=== PATIENT | female | born 1940 | race Caucasian/White ===

== ENCOUNTER 2020-05-20 09:20 | Outpatient (CLI) | payer MEDICARE, SELFPAY ==
--- NOTE | ~2020-05-20 | XR_ITS ---
EXAMINATION: XR pelvis 1-2V INDICATION: Sacrococcygeal disorders TECHNIQUE: AP view of the pelvis is obtained. COMPARISON: None available FINDINGS: Bone alignment is normal. There is no fracture. There is mild osteoarthritis of the hips. S urgical changes are noted in the pelvis. There is lower lumbar spondylosis. IMPRESSION: 1. No acute osseous abnormality. Reviewed, dictated and finalized at location A. [facility] [employer]
== END 2020-05-20 09:21 | disposition home or self-care (01) ==
LOC: ANHIMG 09:29
PROVIDERS: PCP Family Medicine; Visit Provider Family Medicine
DX: M53.3 Sacrococcygeal disorders, not elsewhere classified (principal)
CPT/HCPCS: 72170

== ENCOUNTER 2022-05-30 13:30 | Emergency (ER) | payer MEDICARE, SELFPAY ==
--- NOTE | 2022-05-30 13:34 | ED.EAR ---
HPI - Ear Problem General Chief complaint: Ear Stated complaint: headache, pain in lt ear/head Time Seen by Provider: 05/30/22 14:00 Source: patient and RN notes reviewed Mode of arrival: ambulatory Limitations: no limitations History of Present Illness HPI Narrative: 81-year-old female with concern for left ear pain, frontal headache. Reports more than 1 week history of sinus congestion, drainage. She reports history of migraine. She reports she took antihistamine last week which improved her symptoms but they came back and seemed worse now. She denies any vision changes. MD Complaint: ear pain Related Data Home Medications Medication Instructions Recorded Confirmed escitalopram oxalate 20 mg tablet 20 mg PO DAILY 05/30/22 05/30/22 Allergies Allergy/AdvReac Type Severity Reaction Status Date / Time No Known Allergies Allergy Unverified 05/30/22 13:38 Review of Systems Review of Systems: CONSTITUTIONAL: Denies malaise, chills, sweats, or fever. EYES: Denies visual changes, redness, or discharge. ENT: Reports rhinorrhea, congestion, sinus pain. Reports left ear pain CARDIOVASCULAR: Denies chest pain, palpitations, or edema. RESPIRATORY: Denies cough. Denies dyspnea. GASTROINTESTINAL: Denies abdominal pain, nausea, vomiting, diarrhea SKIN: Denies rash or itching. MUSCULOSKELETAL: Denies myalgia. NEUROLOGIC: Reports headache. All systems reviewed & are unremarkable except as noted in HPI and below PMFSH Family History Family History (Updated 07/08/16 @ 23:56 by DOCTOR UNKNOWN) Grandparent Carcinoma of colon, Onset Age: 194 Father Patient's father is Social History Social History Smoking status: Never smoker Second hand tobacco smoke exposure: No Alcohol intake: current Comments At time of signature, agree with nursing past medical, surgical, social and family history. There is no relevant family history pertinent to the presenting complaint Exam Narrative: GENERAL: Well-appearing, well-nourished, and in no acute distress. HEAD: Normocephalic EYES: PERRLA, conjunctivae clear ENT: Nares clear, turbinates edematous, yellow discharge. Frontal sinus tenderness. mucous membranes moist. TM pearly bai with dull light reflex bilaterally; no tragal tenderness. Oropharynx not erythematous without lesions. Tonsils not enlarged and without exudate, no drooling, no hoarseness, no trismus, uvula midline. NECK: Supple. No lymphadenopathy CHEST: Clear to auscultation, breath sounds equal. No wheezing, rhonchi, rales, or stridor. No respiratory distress, speaks in full sentences. HEART: Regular rate and rhythm. No murmur heard. SKIN: Warm, dry, no rash. NEURO: Alert and oriented x3. PSYCH: Normal mood and affect Course Course Emergency Course: Patient is aware of diagnosis, understands and agrees to treatment plan. Anticipatory guidance given. Patient agrees to follow-up as directed and is aware of reasons to seek care at the emergency department. Portions of this record may have been created with voice recognition software Level of Care: Express Care Visit Vital Signs Vital signs: Reviewed. Medical Decision Making MDM Narrative Medical decision making narrative: Differential diagnosis considered: Bob virus, strep pharyngitis, allergic rhinitis, upper respiratory tract infection, sinusitis, rhinosinusitis, nasopharyngitis. viral pharyngitis, otitis media, otitis externa, otitis effusion, cerumen impaction, foreign body. Exam findings show no acute concerns or changes; patient is non-toxic appearing and is in no distress. Patient is appropriate for outpatient treatment and follow-up. Critical Care Time Critical Care Time Critical Care Time: No Discharge Plan Discharge Clinical Impression: Acute bacterial sinusitis Patient Disposition: Home, Self-Care Condition: Stable Instructions: Antibiotic Form, Sinusitis (ED) Additional Instructions:
[2022-05-30 13:35] VITALS: BP 140/75; PULSE 61; RESP 16; TEMP 36.3; O2SAT 100
[2022-05-30 13:39] VITALS: BP 140/75; PULSE 61; RESP 16; TEMP 36.3; O2SAT 100
== END 2022-05-30 14:10 | disposition home or self-care (01) ==
PROVIDERS: Emergency Provider Nurse Practitioner; PCP Family Medicine
DX: J01.90 Acute sinusitis, unspecified (principal); B96.89 Other specified bacterial agents as the cause of diseases classified elsewhere
CPT/HCPCS: 99213; G0463

== ENCOUNTER 2022-11-13 16:39 | Inpatient (IN) | payer MEDICARE, SELFPAY ==
[2022-11-13] VITALS (15 sets, daily range): BP systolic 107–148; BP diastolic 54–98; PULSE 57–76; RESP 12–24; TEMP 36.6–36.9; O2SAT 97–100; BMI 26.5
--- NOTE | ~2022-11-13 | XR_ITS ---
EXAMINATION: XR chest 1V portable DATE: 11/13/2022 17:14 INDICATION: ST elevation myocardial infarction. TECHNIQUE: A single frontal view of the chest was obtained. COMPARISON: CT abdomen 07/10/2014 FINDINGS: Calcified right lung nodules and calcified right hilar lymph nodes are consistent with old granulomatous disease. No pleural effusion or pneumothorax. The heart size is normal. IMPRESSION: 1. No acute cardiopulmonary disease. Reviewed, dictated and finalized at location E.
--- NOTE | 2022-11-13 16:40 | ECG_ITS ---
Measurements Intervals [place] Rate: 61 P: 55 [place]: 192 QRS: 77 QRSD: 114 T: 89 QT: 405 QTc: 410 Interpretive Statements SINUS RHYTHM BASELINE ARTIFACT MODERATE INTRAVENTRICULAR CONDUCTION DELAY MARKED ST ELEVATION, CONSIDER INFERIOR INJURY [MARKED ST ELEVATION W/O NORMALLY INFLECTED T WAVE IN II/aVF] ACUTE FL ABNORMAL ECG INTERPRETATION BASED ON A DEFAULT AGE OF 40 YEARS NO PREVIOUS ECG AVAILABLE FOR COMPARISON Electronically Signed On 11-14-2022 15:31:25 CDT by Augie Riojas M.D.
--- NOTE | 2022-11-13 16:58 | ED.CHESTPAIN ---
HPI - Chest Pain General Chief Complaint: Chest Pain Stated Complaint: chest pain Time Seen by Provider: 11/13/22 16:43 History of Present Illness HPI narrative: This is an 82-year-old female, who denies significant past medical history who presents to the emergency department complaining of chest pain. The patient describes the pain as dull and somewhat burning, located across the anterior chest without radiation or any known aggravating or alleviating factors. She states she tried multiple antacid medications at home without any improvement. She has no other complaints at this time. Related Data Home Medications Medication Instructions Recorded Confirmed escitalopram oxalate 20 mg tablet 10 mg PO Q12H 05/30/22 11/13/22 Allergies Allergy/AdvReac Type Severity Reaction Status Date / Time No Known Allergies Allergy Verified 11/13/22 17:22 Review of Systems Review of Systems: CONSTITUTIONAL: Denies fever, chills, or sweats. CARDIOVASCULAR: Chest pain denies palpitations, or edema. RESPIRATORY: Denies cough or dyspnea. GASTROINTESTINAL: Denies abdominal pain, nausea, vomiting, or diarrhea. GENITOURINARY: Denies dysuria or hematuria. SKIN: Denies rash or itching. MUSCULOSKELETAL: Denies back pain, joint pain, or myalgia. NEUROLOGIC: Denies headache, numbness, dizziness, or weakness. PSYCHIATRIC: Denies anxiety or depression. 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), and cerebral infarction without residual deficits Pure hypercholesterolemia, unspecified Family History Family History Grandparent Carcinoma of colon, Onset Age: 194 Father Patient's father is Social History Social History Smoking status: Never smoker Second hand tobacco smoke exposure: No Alcohol intake: never Substance use: never Substance use type: does not use Lack of Transportation: No Lack of Food: Never True Current Housing: I Have Housing Concerned About Future Housing: No Difficulty Paying Gas/Electric Bills: No Difficulty Paying for Meds: No Currently Unemployed: No Education: High School Diploma/GED Difficulty w/ Childcare or Family Care: No Living arrangements: with family Occupation/Education: retired Gender identity (if verbalized by the patient): Female Sexual Orientation (if Verbalized by the Patient): Straight or Heterosexual Spiritual care concerns: No Exam Narrative: GENERAL: Well-developed, well-nourished, and in no acute distress. HEAD: Normocephalic, atraumatic. EYES: PERRLA and EOMI. ENT: Nares clear, no rhinorrhea or epistaxis. Mucous membranes moist. Oropharynx without tonsillar hypertrophy exudate or other lesions. NECK: Supple. No adenopathy or masses. No JVD CHEST: Clear to auscultation. No respiratory distress. No wheezes rales or rhonchi HEART: Regular rate and rhythm. No murmur heard. Normal peripheral pulses. ABDOMEN: Soft, nontender, nondistended, normal active bowel sounds. EXTREMITIES: Normal range of motion. No edema. SKIN: Warm, dry, no rash. NEURO: Alert and oriented x3. Moving all 4 limbs purposefully. PSYCH: Normal mood and affect. Course Course Emergency Course: 17:00 - EKG consistent with Inferior STEMI. I discussed this with evaporator, Dr. Grigsby who confirms. Soiled Linen Distributor activated. ABCs intact. Blood pre
[2022-11-13 16:59] LABS: Basophils Absolute Auto 0.1 K/mm3 (0.0-0.1); Basophils Percent Auto 0.6 % (0.2-1.2); Eosinophils Absolute Auto 0.1 K/mm3 (0-0.3); Eosinophils Percent Auto 1.1 % (0-4.4); Hematocrit 35.1 % (37.0-47.0); Hemoglobin 11.4 g/dL (12.0-15.0); Immature Granulocyte Absolute 0.03 K/mm3 (0.00-0.031); Immature Granulocyte Percent A 0.4 % (0-0.5); Lymphocytes Percent Auto 23.2 % (18.3-44.2); Mean Corpuscular HGB Conc 32.5 g/dl (32-36); Mean Corpuscular Hemoglobin 29.6 pg (26-34); Mean Corpuscular Volume 91.2 fl (80-100); Mean Platelet Volume 9.5 fl (7.4-10.4); Monocytes Absolute Auto 0.6 K/mm3 (0.1-0.6); Monocytes Percent Auto 7.7 % (2.6-8.5); Neutrophils Absolute Auto 5.5 K/mm3 (1.3-6.7); Platelet Count Result 234 k/mm3 (150-375); Red Blood Count 3.85 M/mm3 (4.2-5.4); Red Cell Distribution Width 13.2 % (11.5-14.5); White Blood Count 8.2 K/mm3 (4.5-10.0)
[2022-11-13] MEDS: ASPIRIN 81 MG CHEWABLE TABLET 324 MG PO (17:00)
[2022-11-13] MEDS: TICAGRELOR 90 MG TABLET 180 MG PO (17:00)
[2022-11-13] MEDS: HEPARIN SODIUM 5,000 UNITS/ML VIAL 3500 UNITS IV PUSH (17:03)
[2022-11-13 17:10] LABS: Partial Thromboplastin Time 27.4 SECONDS (22.3-36.8); Prothrombin Time 13.2 Seconds (11.1-14.7)
[2022-11-13] MEDS: HEPARIN SOD/D5W 100 UNITS/ML 25,000 UNITS/250 ML BAG 7 UNITS IV CONT (17:10)
[2022-11-13 17:14] LABS: Alanine Aminotransferase 44 U/L (6-35); Alkaline Phosphatase 88 U/L (38-126); Anion Gap 6 mmol/L (8-16); Aspartate Amino Transferase 62 U/L (14-36); Bilirubin,Total 0.4 mg/dL (0.2-1.3); Blood Urea Nitrogen 26 mg/dL (7-17); Carbon Dioxide 23 mmol/L (22-30); Chloride 101 mmol/L (98-107); Estimated CRCL calculation 27 ml/min; Estimated Glomerular Filt Rate 43; Glucose 156 mg/dL (65-110); Lipase 73 U/L (23-300); Potassium 4.1 mmol/L (3.4-5.0); Sodium 130 mmol/L (137-145)
--- NOTE | 2022-11-13 17:21 | PC.NURSE ---
1648 O/H Stemi 1649 [facility] Cath Team 1650 Dr Grigsby notified 1657 [facility] notified arrived at 1716
--- NOTE | 2022-11-13 17:31 | PC.NURSE ---
veterinary laboratory technician arrived and departed with pt at [id number]
[2022-11-13 17:32] LABS: Troponin I 0.731 ng/mL (0.000-0.034)
--- NOTE | 2022-11-13 17:36 | PM.IMHP ---
H&P: HPI History of Present Illness Date/Time: 11/13/22 17:36 Chief Complaint: Chest pain Narrative: Patient is an 82 year old female who presented with chest pain. EKG from the ED shows acute inferior STEMI. Therefore, dental laboratory assistant activated. Patient tells me that she has been having chest pain on and off for the past few months, but had worsening chest pain starting this morning around 10AM. 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), and cerebral infarction without residual deficits Pure hypercholesterolemia, unspecified Family History Family History Grandparent Carcinoma of colon, Onset Age: 194 Father Patient's father is Social History Social History Smoking status: Never smoker Second hand tobacco smoke exposure: No Alcohol intake: current Substance use: never Substance use type: does not use Lack of Transportation: No Lack of Food: Never True Current Housing: I Have Housing Concerned About Future Housing: No Difficulty Paying Gas/Electric Bills: No Difficulty Paying for Meds: No Currently Unemployed: YES Education: High School Diploma/GED Difficulty w/ Childcare or Family Care: No Living arrangements: with family Occupation/Education: retired Gender identity (if verbalized by the patient): Female Sexual Orientation (if Verbalized by the Patient): Straight or Heterosexual Spiritual care concerns: No Meds Home Medications and Allergies Home Medications Medication Instructions Recorded Confirmed Type escitalopram oxalate 20 mg tablet 20 mg PO DAILY 05/30/22 08/08/22 History blueberry 1 tablet PO .every other day 08/08/22 History Allergies Allergy/AdvReac Type Severity Reaction Status Date / Time No Known Allergies Allergy Verified 11/13/22 17:22 Vital Signs Vital Signs - 24 hr 11/13/22 16:45 11/13/22 17:07 11/13/22 17:21 Temperature 36.8 C Pulse Rate 66 66 Respiratory Rate 15 22 H Blood Pressure 148/83 H 144/82 H Pulse Oximetry 100 100 100 Oxygen Delivery Room Air Nasal Cannula Oxygen Flow Rate 2 Exam Const: General: no acute distress HENMT: Mouth: Yes moist mucous membranes Eyes: General: appearance normal, both eyes and all related structures Sclera: sclerae normal Neck: Neck: supple Resp: Effort & Inspection: normal respiratory effort Auscultation: clear to auscultation bilaterally Cardio: Rate: regular rate and bradycardic Heart sounds: no murmurs Skin: General skin exam: normal color Neuro: Speech: normal speech Psych: Mental Status: mental status grossly normal Affect: normal affect H&P: Results Labs Labs: Short CBC 11/13/22 Range/Units 16:52 WBC 8.2 (4.5-10.0) K/mm3 Hgb 11.4 L (12.0-15.0) g/dL Hct 35.1 L (37.0-47.0) % Plt Count 234 (150-375) k/mm3 BMP 11/13/22 16:52 Sodium 130 L Potassium 4.1 Chloride 101 Carbon Dioxide 23 BUN 26 H Creatinine 1.20 H Glucose 156 H Calcium 9.0 Cardiac Enzymes 11/13/22 Range/Units 16:52 Troponin I 0.731 H* (0.000-0.034) ng/mL Liver Function 11/13/22 Range/Units 16:52 Total Bilirubin 0.4 (0.2-1.3) mg/dL AST 62 H (14-36) U/L ALT 44 H (6-35) U/L Alkaline Phosphat
--- NOTE | 2022-11-13 18:40 | WPDMODSED ---
Moderate Sedation Note-Pt Data Patient Data Diagnosis: Inferior STEMI Present Complaint: Inferior STEMI Procedure to be performed/Plan: Primary PCI Allergies Allergy/AdvReac Type Severity Reaction Status Date / Time No Known Allergies Allergy Verified 11/13/22 17:22 Home Medications Medication Instructions Recorded Confirmed Type escitalopram oxalate 20 mg tablet 20 mg PO DAILY 05/30/22 08/08/22 History blueberry 1 tablet PO .every other day 08/08/22 History Current Medications: Active Medications Heparin Sodium (Porcine) (Heparin Sodium 5,000 Units/Ml Vial) 2,000 units IV PUSH PRN PRN PRN Reason: aPTT 55 - 70 seconds Heparin Sodium (Porcine) (Heparin Sodium 5,000 Units/Ml Vial) 4,000 units IV PUSH PRN PRN PRN Reason: aPTT less than 55 seconds Heparin Sodium/Dextrose (Heparin Sodium/D5w 100 Units/Ml) 25,000 units in 250 mls @ 7 mls/hr IV CONT .Q24H NIGEL; Protocol Last Admin: 11/13/22 17:10 Dose: 700 units/hr, 7 mls/hr Sedation/Anesthesia: No previous sedation/anesthesia problems (including family history). 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), and cerebral infarction without residual deficits Pure hypercholesterolemia, unspecified Family History Family History Grandparent Carcinoma of colon, Onset Age: 194 Father Patient's father is Social History Social History Smoking status: Never smoker Second hand tobacco smoke exposure: No Alcohol intake: current Substance use: never Substance use type: does not use Lack of Transportation: No Lack of Food: Never True Current Housing: I Have Housing Concerned About Future Housing: No Difficulty Paying Gas/Electric Bills: No Difficulty Paying for Meds: No Currently Unemployed: YES Education: High School Diploma/GED Difficulty w/ Childcare or Family Care: No Living arrangements: with family Occupation/Education: retired Gender identity (if verbalized by the patient): Female Sexual Orientation (if Verbalized by the Patient): Straight or Heterosexual Spiritual care concerns: No Mod Sed Physical Exam Physical Exam Pre Procedural Exam: Normal: Appearance, Lungs, Heart Rate, Heart Rhythm, Neuro Exam, Abdomen, Extremities and Skin Hours since solid foods: 0 Hours since liquid intake: 0 Mallampati Classification: class II Internal Medicine - PN: Obj Da Vital Signs Vital Signs: Vital Signs - 24 hr 11/13/22 16:45 11/13/22 17:07 11/13/22 17:21 Temperature 36.8 C Pulse Rate 66 66 Respiratory Rate 15 22 H Blood Pressure 148/83 H 144/82 H Pulse Oximetry 100 100 100 Oxygen Delivery Room Air Nasal Cannula Oxygen Flow Rate 2 11/13/22 17:12 11/13/22 17:15 Temperature Pulse Rate 76 65 Respiratory Rate 21 H 21 H Blood Pressure Pulse Oximetry 100 100 Oxygen Delivery Oxygen Flow Rate Meds/Results Medications: Active Medications Generic Name Dose Route Start Last Admin Trade Name Freq PRN Reason Stop Dose Admin Heparin Sodium (Porcine) 2,000 units 11/13/22 17:01 Heparin Sodium 5,000 Units/Ml Vial IV PUSH PRN PRN aPTT 55 - 70 seconds Heparin Sodium (Porcine) 4,000 units 11/13/22 17:01 Heparin Sodium 5,000 Units/Ml Vial IV PUSH PRN PRN aPTT less than 55 seconds Heparin Sodium/Dextrose 25,000 units in 250 mls @ 7 mls/hr
--- NOTE | 2022-11-13 18:49 | WPDCARDPROC ---
Cardiac Cath Procedure Note Date of procedure:: 11/13/22 Performing physician:: CATHETERIZATION LABORATORY REPORT Procedure Date: 11/13/2022 Command Post Superintendent: Nadya Grigsby M.D., [facility]? Referring Physician: Dr. Agustin ([facility]) ? Anesthesia: Versed and Fentanyl were ordered and given in my presence at 17:43, procedure ended at 18:33. Supervision of nurse monitored moderate sedation with Versed and Fentanyl was provided for 50 minutes. Total of Versed 1mg and Fentanyl 50mcg were administered by the Powder Line Repairer RN Tanya Chang. Pre-op Diagnosis: Inferior STEMI Post-op Diagnosis: 1. Acute occlusion of the mid RCA s/p successful IVUS-guided PCI with NILA x 1. 2. Mildly elevated left ventricular end-diastolic pressure of 21mmHg Procedure(s): 1. Moderate sedation 2. Ultrasound-guided access of the right common femoral artery 3. Coronary angiography 4. Left heart cath 5. IVUS-guided PCI of the mid RCA with NILA x 1, with pre- and post-dilatation 6. Angioseal closure of the right common femoral artery Access Site: Right common femoral artery Brief History and Clinical Indications: Patient is an 82 year old female who is referred for emergent cardiac cath for inferior STEMI. All risks, benefits and alternatives to left heart catheterization with or without percutaneous coronary intervention was discussed at length with the patient. Risk of complications including but not limited to bleeding, infection, arrhythmia, stroke, worsening kidney function, blood loss, groin hematoma, limb loss, emergency coronary artery bypass grafting, and even were discussed with the patient and all questions were answered. The patient understood and wished to proceed. Time out called, patient name, date of , medical record number, allergies, procedure performed, identify Command Post Superintendent, patient and staff member concurred with accurate data, procedure carried on. Findings: LEFT HEART CATHETERIZATION FINDINGS: 1. Left main: Large caliber vessel. The left main coronary artery is widely patent without any significant obstructive disease. 2. Left anterior descending: Large caliber vessel that tapers to small caliber distally. The proximal LAD has mild diffuse disease. The mid and distal portions have luminal irregularities. There is corkscrew tortuosity in the distal LAD. Diagonal branches are without obstructive disease. 3. Left circumflex: The left circumflex artery and the main marginal branches have mild luminal irregularities without any significant obstructive angiographic disease. 4. Right coronary artery: Large caliber vessel. The RCA is the dominant vessel. The proximal portion has mild diffuse disease. In the mid portion of the RCA, there is a 99% stenosis followed by complete occlusion. There are [id number] collaterals filling the distal RPDA. 5. Left ventricle: A. End-diastolic pressure 21mmHg. B. LV gram deferred. C. No significant gradient across aortic valve on catheter pullback. Description of Procedure and PCI: Informed consent signed and placed in the chart. Patient transferred to quality assurance qa lab analyst room. Prepped and draped in usual sterile fashion. 2% lidocaine in right groin area. Micropuncture needle used to access right common femoral artery under ultrasound guidance J wire advanced, micropuncture cannula placed. Right iliofemoral angiogram performed, access confirmed and micropuncture cannula exchanged for 6-FR sheath. 5F FL 4 diagnostic catheter engaged Left Main Coronary Artery. Multiple orthogonal angiogram obtained and reviewed Angiomax used for anticoagulation. 6F FR 4 guide catheter was used to intubate the RCA. 0.014 [place] coronary wire was passed in to the distal RCA. The lesion was pre-dilated with a 2.5mm x 15mm balloon inflated to high ALVARO. Multiple balloon inflations done. After balloon inflation, a non-flow limiting dissection was noted at the area of the lesion. Attempted to
[2022-11-13] MEDS: EPTIFIBATIDE 0.75 MG/ML 75 MG/100 ML VIAL 9.89 MG IV CONT (18:50)
--- NOTE | 2022-11-13 18:54 | ADMGEN ---
This patient, Dania Kuhn, was admitted to Intensive Care Unit-1 at 1854. Patient/family oriented to hospital policies and general routines including ID bracelet, bed and alarms, visiting hours, pain management, procedures, bathroom and other care routines, personal items, smoking policy, room service/diet, and visiting hours. Information on how to activate the Rapid Response Team has been discussed. Patient/Family are encouraged to report perceived risks to care and to ask questions if they do not understand what they are told or what they should do.
--- NOTE | 2022-11-13 19:00 | ECG_ITS ---
Measurements Intervals [place] Rate: 53 P: 83 [place]: 201 QRS: 42 QRSD: 97 T: 66 QT: 446 QTc: 420 Interpretive Statements SINUS BRADYCARDIA INFERIOR MYOCARDIAL INFARCTION [40+ ms Q WAVE AND/OR ST/T ABNORMALITY IN II/aVF], POSSIBLY ACUTE ACUTE TX ABNORMAL ECG COMPARED TO ECG 11/13/2022 16:45:21 NO SIGNIFICANT CHANGES Electronically Signed On 11-14-2022 15:34:14 CDT by Augie Riojas M.D.
[2022-11-13] MEDS: SODIUM CHLORIDE 0.9% IV 1,000 ML 125 ML IV CONT (19:22)
[2022-11-13 20:08] LABS: Hemoglobin A1C 5.5 % (<5.7)
[2022-11-13 20:24] LABS: Cholesterol 274 mg/dL (0-200); HDL Direct 60 mg/dL; Triglycerides 84 mg/dL (<150)
[2022-11-13 20:35] LABS: LDL Cholesterol Direct 162 mg/dL
--- NOTE | 2022-11-13 23:28 | WPDCN ---
Assessment and Plan Assessment and plan (1) Acute ST elevation myocardial infarction (STEMI) of inferior wall: Code(s): I21.19 - ST elevation (STEMI) myocardial infarction involving other coronary artery of inferior wall Status: Acute Assessment and Plan: Patient presented with anterior chest pain, found to have acute inferior wall STEMI. She is now status post cardiac catheterization with successful PCI with a drug-eluting stent to the mid RCA per Dr. Grigsby. She has been started on aspirin, ticagrelor, atorvastatin. (2) Chronic kidney disease, stage 3a: Code(s): N18.31 - Chronic kidney disease, stage 3a Status: Acute Assessment and Plan: Creatinine today is 1.20 with a GFR of 43. Probably near baseline. Monitor. (3) Hypertension: Code(s): I10 - Essential (primary) hypertension Status: Acute Assessment and Plan: Not currently on antihypertensives. Blood pressures were reviewed and they have been stable. Monitor. (4) Pure hypercholesterolemia, unspecified: Code(s): E78.00 - Pure hypercholesterolemia, unspecified Status: Acute Assessment and Plan: She has been started on high-intensity statin, atorvastatin at 80 mg daily. (5) Alzheimer disease: Code(s): G30.9 - Alzheimer's disease, unspecified; F02.80 - Dementia in other diseases classified elsewhere, unspecified severity, without behavioral disturbance, psychotic disturbance, mood disturbance, and anxiety Status: Acute Assessment and Plan: She is more confused postcath, likely due to medications. Encouraged a quiet environment and good sleep-wake cycle. Plan Thank you for allowing us to participate in this patient's care. Please do not hesitate to contact us with any questions. HPI Data of Consult Date/Time: 11/13/22 22:45 Requesting Physician: Nadya Grigsby MD Primary Care Provider: Antonino Gant MD Consult Narrative Reason for consult: STEMI, medical management. Narrative: This is a very pleasant 82-year-old female whom the hospitalist service has been consulted for medical management post cardiac catheterization and percutaneous coronary intervention of the right coronary artery. The last 2 weeks she has been experiencing what she thought was heartburn and last Monday her symptoms seem to be worse. She took a [id number] antacid which helped her symptoms and she has not complained of any issues until today when she developed a dull and somewhat burning sensation across the anterior chest. The pain did not radiate and she denied associated symptoms. Specifically she denied sweats, shortness of breath, nausea, and vomiting. Once again she tried to take an antacid but that did not help and she came to the ER where she was found to have an acute inferior STEMI. She was taken to the analyst microbiology lab per Dr. Grigsby and underwent successful stent placement to the mid RCA. I am seeing the patient in the ICU and she is resting comfortably and has no complaints. She seems to be confused from the medications that she received earlier and in fact she did not remember that she was in the hospital. She was able to give me the above history once she was reminded about where she was and what had transpired. She is not having any current chest pain and she has no current complaints. Regarding her medical history, she is quite healthy for her age. She carries a diagnosis of dementia, hypertension, hypercholesterolemia, and chronic kidney disease as well as anxiety. She has has a history of breast and colon cancers which have been treated and are considered cured. The only prescription medication that she is on currently is escitalopram for her anxiety. Review of Systems Review of Systems: Twelve systems were reviewed and are negative except for as per HPI. [facility] Past Medical History Medical History (Updated 11/13/22 @ 23:34 by Jaclyn Workman PA-C) Alzheimer disease
[2022-11-13 23:44] LABS: Troponin I > 80.000 ng/mL (0.000-0.034)
[2022-11-13] MEDS: ACETAMINOPHEN 325 MG TABLET 650 MG PO (23:50)
[2022-11-13] MEDS: MELATONIN 5 MG TABLET PO (23:50)
[2022-11-14] VITALS (14 sets, daily range): BP systolic 100–129; BP diastolic 50–95; PULSE 56–76; RESP 12–30; TEMP 36.3–37.1; O2SAT 92–100
--- NOTE | 2022-11-14 | ECHO_ITS ---
Patient Info Name: Dania Kuhn Age: 82 years : 1940 Gender: Female Ht: 62 in Wt: 134 lbs BSA: 1.64 m2 HR: 65 bpm BP: 120 / 63 mmHg Heart Rhythm: Sinus Rhythm Technical Quality: Fair Exam Date: 11/14/2022 8:02 AM Exam Location: [facility] Patient Status: Inpatient Admit Date: 11/13/2022 Staff Ordering Physician: Nadya Grigsby MD (kyra/denise) Radar Operator: Beena Mendosa RDCS Attending Provider: Nadya Grigsby MD (kyra/denise) Referring Physician: Seb GARCÍA; Exam Type: CA echo doppler color flow Study Info Indications - STEMI Complete two-dimensional, color flow and Doppler transthoracic echocardiogram is performed. Summary 1. Complete two-dimensional, color flow and Doppler transthoracic echocardiogram is performed. 2. Left ventricular chamber dimension is normal. 3. Left ventricular systolic function is mildly reduced, estimated at 50% and hypokinesis of the mid inferolateral and mid and basal inferior nielson.. 4. There is no increased left ventricular wall thickness. 5. The left ventricular diastolic function is normal. 6. There is mild mitral valve regurgitation. 7. There is mild tricuspid valve regurgitation. 8. Moderate pulmonary hypertension, estimated pulmonary arterial systolic pressure is 46 mmHg. Left Ventricle Left ventricular chamber dimension is normal. Left ventricular systolic function is mildly reduced, estimated at 50% and hypokinesis of the mid inferolateral and mid and basal inferior nielson.. There is no increased left ventricular wall thickness. The left ventricular diastolic function is normal. Right Ventricle Right ventricular chamber dimension is normal. Right ventricular systolic function is normal. Left Atria Left atrial chamber dimension is normal. Right Atria Right atrial chamber dimension is normal. Atrial Septum Cannot exclude patent foramen ovale by color-flow Doppler. Consider bubble study if clinically indicated. Aortic Valve The aortic valve is trileaflet. There is mild aortic valve sclerosis. There is no aortic valve regurgitation. There is no hemodynamically significant aortic stenosis. Pulmonic Valve The pulmonic valve is not well visualized. Mitral Valve The mitral valve has thickened leaflets. There is mild mitral valve regurgitation. The mitral valve annulus is moderately calcified. Tricuspid Valve The tricuspid valve leaflets are normal. There is mild tricuspid valve regurgitation. Moderate pulmonary hypertension, estimated pulmonary arterial systolic pressure is 46 mmHg. Pericardium/Pleural The pericardium appears normal. There is no pericardial effusion. Inferior Vena Cava Normal inferior vena cava with <50% collapse upon inspiration consistent with elevated right atrial pressure, 10 mmHg. Aorta The aortic root size at the sinus of Valsalva is normal. There is mild aortic atherosclerosis. Left Ventricular Outflow Tract Name Value Normal LVOT 2D LVOT Diameter 2.0 cm LVOT Doppler LVOT Peak Gradient 2 mmHg LVOT Mean Gradient 1 mmHg LVOT VTI 13 cm LVOT VTI/AV VTI Ratio 0.5
[2022-11-14] MEDS: EPTIFIBATIDE 0.75 MG/ML 75 MG/100 ML VIAL 9.89 MG IV CONT (01:20)
[2022-11-14 04:36] LABS: Basophils Percent Auto 0.5 % (0.2-1.2); Eosinophils Percent Auto 0.1 % (0-4.4); Hematocrit 29.8 % (37.0-47.0); Hemoglobin 9.6 g/dL (12.0-15.0); Immature Granulocyte Absolute 0.04 K/mm3 (0.00-0.031); Immature Granulocyte Percent A 0.5 % (0-0.5); Lymphocytes Absolute Auto 1.42 K/mm3 (0.9-3.2); Lymphocytes Percent Auto 16.4 % (18.3-44.2); Mean Corpuscular HGB Conc 32.2 g/dl (32-36); Mean Corpuscular Hemoglobin 29.5 pg (26-34); Mean Corpuscular Volume 91.7 fl (80-100); Mean Platelet Volume 9.8 fl (7.4-10.4); Monocytes Percent Auto 11.2 % (2.6-8.5); Neutrophils Absolute Auto 6.2 K/mm3 (1.3-6.7); Neutrophils Percent Auto 71.3 % (45.5-73.1); Platelet Count Result 208 k/mm3 (150-375); Red Blood Count 3.25 M/mm3 (4.2-5.4); Red Cell Distribution Width 13.2 % (11.5-14.5); White Blood Count 8.7 K/mm3 (4.5-10.0)
--- NOTE | 2022-11-14 04:39 | PC.NURSE ---
Patient removed peripheral IV x 2. Unable to redirect patient to stop pulling at lines. Integrilin drip discontinued 2 hours early due to loss of IV access and extreme confusion. Will continue to monitor.
[2022-11-14 04:55] LABS: Alanine Aminotransferase 82 U/L (6-35); Albumin Level 3.3 g/dL (3.5-5.1); Alkaline Phosphatase 75 U/L (38-126); Anion Gap 0 mmol/L (8-16); Aspartate Amino Transferase 269 U/L (14-36); Bilirubin,Total 0.5 mg/dL (0.2-1.3); Blood Urea Nitrogen 22 mg/dL (7-17); Calcium 8.3 mg/dL (8.4-10.2); Carbon Dioxide 26 mmol/L (22-30); Chloride 102 mmol/L (98-107); Estimated CRCL calculation 35 ml/min; Estimated Glomerular Filt Rate 53; Glucose 120 mg/dL (65-110); Potassium 4.5 mmol/L (3.4-5.0); Sodium 128 mmol/L (137-145)
[2022-11-14] MEDS: ASPIRIN 81 MG ENTERIC TABLET PO (08:01)
[2022-11-14] MEDS: ATORVASTATIN 40 MG TABLET 80 MG PO (08:01)
[2022-11-14] MEDS: TICAGRELOR 90 MG TABLET PO ×2 (08:04→21:08)
--- NOTE | 2022-11-14 08:20 | WPDCNINT ---
Assessment and Plan Assessment and plan (1) Acute ST elevation myocardial infarction (STEMI) of inferior wall: Code(s): I21.19 - ST elevation (STEMI) myocardial infarction involving other coronary artery of inferior wall Status: Acute Assessment and Plan: 11/13: Patient presented with chest pain, EKG showed ST elevation in inferior leads, patient was taken to the cardiac photographic laboratory technician for acute inferior myocardial injury, found to have 99% occlusion of mid RCA status post PTCA/PCI of mid RCA with stent x1 -noted to have distal embolization to the distal RPDA, patient was placed on Integrilin infusion. -status post Integra infusion -echocardiogram has been ordered -continue aspirin, atorvastatin, ticagrelor (2) Chronic kidney disease, stage 3a: Code(s): N18.31 - Chronic kidney disease, stage 3a Status: Acute Assessment and Plan: Creatinine 1.0 this morning, currently at baseline -continue monitor urine output, renal function electrolytes (3) Hypertension: Code(s): I10 - Essential (primary) hypertension Status: Acute Assessment and Plan: Blood pressure remains stable, patient does not take any antihypertensives at this time (4) Hyperlipidemia: Code(s): E78.5 - Hyperlipidemia, unspecified Status: Acute Assessment and Plan: Continue statin (5) Alzheimer disease: Code(s): G30.9 - Alzheimer's disease, unspecified; F02.80 - Dementia in other diseases classified elsewhere, unspecified severity, without behavioral disturbance, psychotic disturbance, mood disturbance, and anxiety Status: Acute Assessment and Plan: Patient will confused likely related to change in environment -maintain normal sleep cycle, will have bright lights, open the blinds in the room -will monitor Plan DVT prophylaxis: Patient was integral infusion Stress ulcer prophylaxis: Not indicated Nutrition: Heart healthy diet Code Status: Full code Critical Care Time Spent: 47 minutes Discussed with patient and her daughter at bedside and updated the patient's condition and plan of care. I explained to both of them regarding the procedure with she has a stent in his right coronary artery since it was occluded. I answered all questions Due to a high probability of clinically significant, life threatening deterioration, the patient required my highest level of preparedness to intervene emergently and I personally spent this critical care time directly and personally managing the patient. This critical care time included obtaining a history; examining the patient; pulse oximetry; ordering and review of studies; arranging urgent treatment with development of a management plan; evaluation of patient's response to treatment; frequent reassessment; and discussions with other providers. It was exclusive of separately billable procedures and treating other patients and teaching time. Please see Assessment and Plan section and the rest of the note for further information on patient assessment and treatment This dictation may have been done utilizing a voice recognition system. Attempts have been made to correct errors. However, there may be uncorrected grammatical, spelling, and recognitions errors present. Pump Machine Operator Consult Note Consult date: 11/14/22 Reason for consult: STEMI status post PTCA/PCI to mid RCA HPI: Dania Kuhn is a 82 year old female with past medical history other murmurs disease, chronic kidney disease stage 3, migraines, anxiety disorder, hyperlipidemia, essential hypertension presented the ED with complaints of heartburn for approximately 2 weeks, which initially resolved with antacids. She started to complain of chest pain on the day of admission which was dull and somewhat burning sensation across the anterior aspect of her entire chest pain patient denies any radiation, shortness of breath, nausea or vomiting. She took antacid but this time it did not help worse she pres
--- NOTE | 2022-11-14 09:55 | PM.PNCARD ---
Progress Note: A&P Assessment and Plan (1) Acute ST elevation myocardial infarction (STEMI) of inferior wall: Code(s): I21.19 - ST elevation (STEMI) myocardial infarction involving other coronary artery of inferior wall <HARVINDER Virgen - Last Filed: 11/14/22 12:41> Status: Acute <HARVINDER Virgen - Last Filed: 11/14/22 12:41> Assessment and Plan: Presented 11/13/22 with chest pain. ECG consistent with inferior NV. Now s/p PCI to the RCA DAPT with ASA, Brilinta for one year (ASA indefinitely) High intensity statin Will add BB at some point, SBP 100mmHg currently, so will hold off for now. Cardiac rehab referral Aggressive risk factor modification for CAD Ambulate, OOB to chair Can downgrade to IMU status <HARVINDER Virgen - Last Filed: 11/14/22 12:41> (2) Hyperlipidemia: Code(s): E78.5 - Hyperlipidemia, unspecified <HARVINDER Virgen - Last Filed: 11/14/22 12:41> Status: Acute <HARVINDER Virgen - Last Filed: 11/14/22 12:41> Assessment and Plan: On high intensity statin <HARVINDER Virgen - Last Filed: 11/14/22 12:41> (3) Hypertension: Code(s): I10 - Essential (primary) hypertension <HARVINDER Virgen - Last Filed: 11/14/22 12:41> Status: Acute <HARVINDER Virgen - Last Filed: 11/14/22 12:41> Assessment and Plan: At goal <HARVINDER Virgen - Last Filed: 11/14/22 12:41> Assessment and Plan: Attending addendum: I agree with the above documentation plan of care as outlined. Patient remains at elevated risk for adverse cardiovascular complications in the near future particular the next 30 days given her presentation. Continue to monitor for ventricular arrhythmias on telemetry and medication tolerance. Aggressive risk factor modification. Close follow-up as an outpatient upon discharge. <Augie Riojas MD - Last Filed: 11/14/22 15:41> Subjective Date/time seen: 11/14/22 09:55 <HARVINDER Virgen - Last Filed: 11/14/22 12:41> Interval history: Cardiology follow up for CAD, STEMI No acute evnets overnight. Feeling well this morning. Only complaint is poor sleep last night. She denies any chest pain, shortness of breath, or palpitations. <HARVINDER Virgen - Last Filed: 11/14/22 12:41> Review of Systems Review of Systems: All systems reviewed & are unremarkable except as noted in HPI and below (HPI) <HARVINDER Virgen - Last Filed: 11/14/22 12:41> Exam Const: General: no acute distress <HARVINDER Virgen - Last Filed: 11/14/22 12:41> HENMT: Mouth: Yes moist mucous membranes <HARVINDER Virgen - Last Filed: 11/14/22 12:41> Eyes: General: appearance normal, both eyes and all related structures <HARVINDER Virgen - Last Filed: 11/14/22 12:41> Sclera: sclerae normal <HARVINDER Virgen - Last Filed: 11/14/22 12:41> Neck: Neck: supple <HARVINDER Virgen - Last Filed: 11/14/22 12:41> Resp: Effort & Inspection: normal respiratory effort <HARVINDER Virgen - Last Filed: 11/14/22 12:41> Auscultation: clear to auscultation bilaterally <HARVINDER Virgen - Last Filed: 11/14/22 12:41> Cardio: Rate: regular rate <HARVINDER Virgen - Last Filed: 11/14/22 12:41> Rhythm: regular rhythm <HARVINDER Virgen - Last Filed: 11/14/22 12:41> Heart sounds: no murmurs <HARVINDER Virgen - Last Filed: 11/14/22 12:41> Skin: General skin exam: normal color <HARVINDER Virgen - Last Filed: 11/14/22 12:41> Other: R groin arterial access site free from bleeding, hematoma, pain. <HARVINDER Virgen - Last Filed: 11/14/22 12:41> Neuro: Speech: normal speech <HARVINDER Virgen - Last Filed: 11/14/22 12:41> Extrem: Other: No edema. <HARVINDER Virgen - Last Filed: 11/14/22 12:41> Psych: Mental Status: mental status grossly normal <HARVINDER Virgen - Last Filed: 11/14/22 12:41> Aff
--- NOTE | 2022-11-14 12:38 | PC.NURSE ---
This patient, Dania Kuhn, was transferred to [[id number]] on 11/14/22 at 1238. Personal belongings sent with patient. Report given to [Roxy Katz RN]. Appropriate documentation sent with patient.
[2022-11-14] MEDS: ACETAMINOPHEN 325 MG TABLET 650 MG PO (21:08)
[2022-11-14] MEDS: MELATONIN 5 MG TABLET PO (21:08)
[2022-11-14] MEDS: QUEtiapine FUMARATE 12.5 MG TABLET PO (21:08)
[2022-11-15] VITALS (8 sets, daily range): BP systolic 101–115; BP diastolic 53–76; PULSE 61–107; RESP 16–20; TEMP 36.1–36.7; O2SAT 97–100
[2022-11-15 04:58] LABS: Alanine Aminotransferase 175 U/L (6-35); Albumin Level 3.7 g/dL (3.5-5.1); Alkaline Phosphatase 93 U/L (38-126); Anion Gap 2 mmol/L (8-16); Aspartate Amino Transferase 227 U/L (14-36); Bilirubin,Total 0.7 mg/dL (0.2-1.3); Blood Urea Nitrogen 21 mg/dL (7-17); Calcium 8.8 mg/dL (8.4-10.2); Carbon Dioxide 26 mmol/L (22-30); Chloride 104 mmol/L (98-107); Estimated CRCL calculation 30 ml/min; Estimated Glomerular Filt Rate 43; Glucose 98 mg/dL (65-110); Sodium 132 mmol/L (137-145)
[2022-11-15 05:06] LABS: Potassium 4.4 mmol/L (3.4-5.0)
--- NOTE | 2022-11-15 08:38 | PM.IMPN ---
Progress Note: A&P Assessment and Plan (1) Acute ST elevation myocardial infarction (STEMI) of inferior wall: Code(s): I21.19 - ST elevation (STEMI) myocardial infarction involving other coronary artery of inferior wall Status: Acute Assessment and Plan: Management per Cardiology (2) Chronic kidney disease, stage 3a: Code(s): N18.31 - Chronic kidney disease, stage 3a Status: Acute Assessment and Plan: Slight bump in creatinine from 1-1.2, monitor (3) Hyperlipidemia: Code(s): E78.5 - Hyperlipidemia, unspecified Status: Acute Assessment and Plan: Continue high-intensity statin (4) Hypertension: Code(s): I10 - Essential (primary) hypertension Status: Acute Assessment and Plan: Blood pressures reviewed 11/15, well controlled (5) Alzheimer disease: Code(s): G30.9 - Alzheimer's disease, unspecified; F02.80 - Dementia in other diseases classified elsewhere, unspecified severity, without behavioral disturbance, psychotic disturbance, mood disturbance, and anxiety Status: Acute Assessment and Plan: Some sundowning noted 11/14, seroquel x 1 given Plan DVT prophylaxis with SCDs GI prophylaxis not indicated Code status full code Subjective Date/time seen: 11/15/22 08:38 Interval history: 82-year-old female admitted by Cardiology for chest pain, NSTEMI and s/p PCI to RCA 11/13. No overnight events noted. No chest pain or shortness of breath. No nausea, vomiting or diarrhea. No fevers or chills. Review of Systems Review of Systems: 12 point review of systems was assessed and was negative except as noted in the HPI Exam Narrative: General: No acute distress, alert and oriented per baseline HEENT: Atraumatic, normocephalic, mucous membranes moist CV: Regular rate and rhythm, S1, S2 Lungs: Clear to auscultation bilaterally, no rales or crackles noted, no wheezes, good air entry Abdomen: Soft, nontender, nondistended Extremities: Normal to inspection Skin: No rashes noted, no lesions or wounds seen Psych: Euthymic, normal affect Objective Data Vital Signs Vital Signs: Vital Signs - 24 hr 11/14/22 10:00 11/14/22 10:00 11/14/22 12:00 Temperature 98.1 F Pulse Rate 73 74 64 Pulse Rate [Bilateral Pedal (Dorsalis Pedis) Palpation] Respiratory Rate 18 16 Blood Pressure 104/58 L 100/52 L Pulse Oximetry 98 100 Oxygen Delivery 11/14/22 12:00 11/14/22 12:00 11/14/22 12:00 Temperature Pulse Rate 65 Pulse Rate [Bilateral Pedal (Dorsalis Pedis) Palpation] 64 Respiratory Rate Blood Pressure Pulse Oximetry 98 Oxygen Delivery Room Air 11/14/22 14:00 11/14/22 16:00 11/14/22 16:00 Temperature 98 F Pulse Rate 68 72 Pulse Rate [Bilateral Pedal (Dorsalis Pedis) Palpation] Respiratory Rate 17 Blood Pressure 105/74 Pulse Oximetry 92 Oxygen Delivery Room Air 11/14/22 16:00 11/14/22 18:00 11/14/22 20:00 Temperature 97.3 F L Pulse Rate 63 71 66 Pulse Rate [Bilateral Pedal (Dorsalis Pedis) Palpation] Respiratory Rate 16 Blood Pressure 129/56 L Pulse Oximetry 100 Oxygen Delivery 11/14/22 20:00 11/15/22 00:00 11/15/22 00:00 Temperature 97.4 F L Pulse Rate 66 70 70 Pulse Rate [Bilateral Pedal (Dorsalis Pedis) Palpation] Respiratory Rate 16 20 20 Blood Pressure 114/53 L Pulse Oximetry 100 97 97 Oxygen Delivery Room Air Room Air 11/14/22 20:00 11/14/22 22:00 11/15/22 00:00 Temperature Pulse Rate 76 70 61 Pulse Rate [Bilateral Pedal (Dorsalis Pedis) Palpation] Respiratory Rate Blood Pressure Pulse Oximetry Oxygen Delivery 11/15/22 02:00 11/15/22 03:39 11/15/22 04:00 Temperature 97.0 F L Pulse Rate 107 H 107 H 73 Pulse Rate [Bilateral Pedal (Dorsalis Pedis) Palpation] Respiratory Rate 20 16 Blood Pressure 101/61 Pulse Oximetry 97 100 Oxygen Delivery Room Air
[2022-11-15] MEDS: ATORVASTATIN 40 MG TABLET 80 MG PO (09:10)
[2022-11-15] MEDS: TICAGRELOR 90 MG TABLET PO (09:10)
[2022-11-15] MEDS: ASPIRIN 81 MG ENTERIC TABLET PO (09:10)
[2022-11-15] MEDS: ESCITALOPRAM OXALATE 10 MG TABLET PO (09:16)
--- NOTE | 2022-11-15 11:22 | PC.NURSE ---
Addendum entered by Tanya Arndt RN 11/15/22 11:33: post cardiac cath activity discussed with pt and Original Note: Discharge instructions discussed with pt and - verbalized understanding- Stent card , closure site card and samples Brilinta given to -
--- NOTE | 2022-11-15 11:38 | PM.DS ---
DS: Admitting Diagnosis Discharge Date 11/15/2022 Admitting Diagnosis Inferior STEMI DS: Discharge Diagnosis Discharge Diagnosis (1) Acute ST elevation myocardial infarction (STEMI) of inferior wall: Code(s): I21.19 - ST elevation (STEMI) myocardial infarction involving other coronary artery of inferior wall Status: Acute (2) Hypertension: Code(s): I10 - Essential (primary) hypertension Status: Acute (3) Hyperlipidemia: Code(s): E78.5 - Hyperlipidemia, unspecified Status: Acute DS: Summary Hospital Course Reason for hospitalization: Inferior STEMI Hospital Course: Patient presented with inferior STEMI. Found with acute occlusion of the mid RCA, s/p successful PCI with NILA x 1. Patient did well post-PCI. Echocardiogram shows LVEF 50%, mild MR, mild TR. Patient to be on ASA, Brilinta, high intensity statin. Referral to cardiac rehab placed. Status at Discharge Functional status at discharge: independent ambulation Overall status at discharge: patient is back to baseline Time Spent with Patient Time attestation: Total time spent providing and/or coordinating discharge services: Exam Const: General: comfortable and no acute distress HENMT: Mouth: Yes moist mucous membranes Eyes: General: appearance normal, both eyes and all related structures Sclera: sclerae normal Neck: Neck: supple Resp: Effort & Inspection: normal respiratory effort Auscultation: clear to auscultation bilaterally Cardio: Rate: regular rate Rhythm: regular rhythm Heart sounds: no murmurs Skin: General skin exam: normal color Extrem: General: normal to inspection Psych: Mental Status: mental status grossly normal Affect: normal affect DS: Data Data Completed and Pending Labs on day of discharge: Labs from last 24 hours 11/15/22 04:35 Sodium 132 L Potassium 4.4 Chloride 104 Carbon Dioxide 26 Anion Gap 2 L BUN 21 H Creatinine 1.20 H Estim Creat Clear Calc 30 Estimated GFR 43 L Glucose 98 Calcium 8.8 Total Bilirubin 0.7 AST 227 H ALT 175 H Alkaline Phosphatase 93 Total Protein 7.0 Albumin 3.7 Discharge Plan Discharge Attending physician on discharge: Nadya Grigsby Consulting providers: Mya Fenton Isha L. Discharging Clinician: Nadya Grigsby Anticipated Discharge Date/Time: 11/15/22 09:27 Patient Disposition: Home, Self-Care Activity: may shower Diet: heart healthy Patient Instructions: Antibiotic Form, Aspirin (By mouth), Atorvastatin (By mouth), Ticagrelor (By mouth), Left Heart Catheterization (GEN) Stand Alone Forms: General Discharge Information Follow-up/Referrals: Nadya Grigsby MD [Physician] - Discharge Medications: New aspirin 81 mg Tablet,Delayed Release (Dr/Ec) 81 mg PO QAM Qty: 90 3RF atorvastatin 80 mg tablet 80 mg PO DAILY Qty: 90 3RF Brilinta 90 mg Tablet 90 mg PO Q12HR Qty: 180 3RF Continued escitalopram oxalate 20 mg tablet 10 mg PO Q12H Date of admission: 11/13/22 17:01 Primary Care Provider: Antonino Gant Admitting Provider: Nadya Grigsby Attending physician on admission: Nadya Grigsby Condition: Critical
== END 2022-11-15 11:27 | disposition home or self-care (01) | DRG 247 ==
LOC: ANHED 17:33 → ANHICU 17:39 → ANHIMU 11-14 12:38
PROVIDERS: Emergency Medicine; Admitting Provider Internal Medicine; Emergency Provider Preventive Medicine Aerospace Medicine; PCP Family Medicine; Visit Provider Internal Medicine
PROC: 4A023N7 Measurement of Cardiac Sampling and Pressure, Left Heart, Percutaneous Approach (ICD-10-PCS; CPT 93452; principal; 2022-11-13 17:15)
PROC: 4A023N7 Measurement of Cardiac Sampling and Pressure, Left Heart, Percutaneous Approach (ICD-10-PCS; 2022-11-13 17:15)
PROC: 4A023N7 Measurement of Cardiac Sampling and Pressure, Left Heart, Percutaneous Approach (ICD-10-PCS; 2022-11-13 17:15)
PROC: 4A023N7 Measurement of Cardiac Sampling and Pressure, Left Heart, Percutaneous Approach (ICD-10-PCS; 2022-11-13 17:15)
DX: I21.19 ST elevation (STEMI) myocardial infarction involving other coronary artery of inferior wall (principal); I12.9 Hypertensive chronic kidney disease with stage 1 through stage 4 chronic kidney disease, or unspecified chronic kidney disease; N18.31 Chronic kidney disease, stage 3a; E78.00 Pure hypercholesterolemia, unspecified; F02.80 Dementia in other diseases classified elsewhere, unspecified severity, without behavioral disturbance, psychotic disturbance, mood disturbance, and anxiety; F41.1 Generalized anxiety disorder; G30.9 Alzheimer's disease, unspecified; I70.0 Atherosclerosis of aorta; Z85.3 Personal history of malignant neoplasm of breast; Z86.73 Personal history of transient ischemic attack (TIA), and cerebral infarction without residual deficits; Z85.038 Personal history of other malignant neoplasm of large intestine; Z90.49 Acquired absence of other specified parts of digestive tract; Z90.710 Acquired absence of both cervix and uterus
CPT/HCPCS: 36415; 71045; 80053; 80061; 83036; 83690; 84443; 84484; 85025; 85610; 85730; 92978; 93005; 93306; 93458; 99291; A9270; C1725; C1753; C1760; C1769; C1874; C1887; C1894; C9606; G0269; J1327; J1644; J2250; J2305; J2405; J3010; J7030; J7040